=== PATIENT | female | born 1990 | race Caucasian/White ===

== ENCOUNTER 2018-03-10 10:01 | Observation (INO) | payer BC ==
[2018-03-08 13:23] LABS: BASOPHILS % 0.3 % (0.0-1.0); EOSINOPHILS # (AUTO) 0.2 (0.0-0.4); EOSINOPHILS % 1.5 % (0.0-6.0); HEMATOCRIT 35.9 % (34.2-44.1); HEMOGLOBIN 11.8 g/dL (12.0-16.0); LYMPHOCYTES # (AUTO) 2.5 (1.0-3.2); LYMPHOCYTES % 25.4 % (18.0-39.1); MEAN CORPUSCULAR HEMOGLOBIN 27.8 pg (28-32); MEAN CORPUSCULAR HGB CONC 32.9 g/dL (31-35); MEAN CORPUSCULAR VOLUME 84.5 fL (81-99); MONOCYTES # (AUTO) 0.4 (0.2-0.8); NEUTROPHILS # (AUTO) 6.7 (2.1-6.9); NEUTROPHILS % 68.6 % (38.7-80.0); PLATELET COUNT 303 x10e3/uL (140-360); RED BLOOD COUNT 4.25 x10e6/uL (3.6-5.1); RED CELL DISTRIBUTION WIDTH 14.7 % (11.7-14.4)
[2018-03-08 13:35] LABS: INR 1.06
[2018-03-08 13:36] LABS: PARTIAL THROMBOPLASTIN TIME 22.6 seconds (23.8-35.5)
[2018-03-08 13:40] LABS: ANION GAP 12.8 mmol/L (8-16); BLOOD UREA NITROGEN 11 mg/dL (7-26); BUN/CREATININE RATIO 14 (6-25); CALCIUM 9.6 mg/dL (8.4-10.2); CARBON DIOXIDE 28 mmol/L (22-29); CHLORIDE 104 mmol/L (98-107); CREATININE, SERUM 0.76 mg/dL (0.57-1.11); EST GLOMERULAR FILTRATION RATE > 60 ML/MIN (60-); GLUCOSE 115 mg/dL (74-118); POTASSIUM 3.8 mmol/L (3.5-5.1); SODIUM 141 mmol/L (136-145)
--- NOTE | 2018-03-08 14:00 | Diagnostic Imaging Report ---
PROCEDURE: Frontal and lateral views of the chest. COMPARISON: None. INDICATIONS: PRE OPERATIVE CHEST X-RAY FOR BACK SURGERY WEDNESDAY FINDINGS: Lines/tubes: None. Lungs: The lungs are well inflated and clear. There is no evidence of pneumonia or pulmonary edema. Pleura: There is no pleural effusion or pneumothorax. Heart and mediastinum: The heart and the mediastinum are normal. Bones: No acute bony abnormality. IMPRESSION: 1. No acute cardiopulmonary disease. Oc Solorio M.D. Dictated by: Oc Solorio M.D. on 03/08/2018 at 14:03 Electronically approved by: Oc Solorio M.D. on 03/08/2018 at 14:03
[~2018-03-10] VITALS: Ht 162.6 cm; Wt 123.6 kg
[~2018-03-10 10:01] MED LIST: ACETAMINOPHEN 1000 MG/100 ML 100 ML IV ONE; BACITRACIN 50,000 UNIT VIAL ONE; BUPIVACAINE 0.5%/EPI 30 ML SDV INJ ONE; GELATIN SPONGE SZ 100 ONE; IBUPROFEN200 MG PO; LIDOCAINE HCL (LTA) 4 ML SOLN ONE; SALONPAS PATCH1 EAC1 TOP; THROMBIN FOR SOLN 5,000 UNIT VIAL ONE; TYLENOL # 31 EA PO
[2018-03-10] MEDS ORDERED: VANCOMYCIN HCL 1.5 GM in SODIUM CHLORIDE 0.9% 250ML 300 ML IV ONE (10:15)
[2018-03-10] MEDS ORDERED: ACETAMINOPHEN 325 MG TAB PO PRN (13:45)
[2018-03-10] MEDS ORDERED: ZOLPIDEM TARTRATE 5 MG TAB PO PRN (13:45)
[2018-03-10] MEDS ORDERED: MAGNESIUM/ALUMINUM/SIMETHICONE 30 ML UDC PO PRN (13:45)
[2018-03-10] MEDS ORDERED: HYDROMORPHONE 2MG/ML INJ IV PRN (13:45)
[2018-03-10] MEDS ORDERED: CARISOPRODOL 350 MG TAB PO PRN (13:45)
[2018-03-10] MEDS ORDERED: PROMETHAZINE HCL (IM) 25 MG/ML VIAL IM PRN (13:45)
[2018-03-10] MEDS ORDERED: OXYCODONE/ACETAMINOPHEN 5-325 1 EACH TABLET PO PRN (13:45)
[2018-03-10] MEDS ORDERED: MORPHINE SULFATE 5 MG/ML VIAL IM PRN (13:45)
[2018-03-10] MEDS ORDERED: FENTANYL CITRATE/PF 100MCG/2 ML INJ ONE ×2 (13:48→18:28)
[2018-03-10] MEDS: LACTATED RINGER'S 1,000 ML IV SCH ×2 (14:30→22:12)
--- NOTE | 2018-03-10 14:30 | Operative Report ---
DATE OF PROCEDURE: March 10, 2018 PREOPERATIVE DIAGNOSIS: Right L5-S1 disk herniation with radiculopathy, M51.17. POSTOPERATIVE DIAGNOSIS: Right L5-S1 disk herniation with radiculopathy, M51.17. PROCEDURE: Right L5-S1 laminotomy, medial facetectomy, and microsurgical diskectomy, [id number]. ANESTHESIA: General. INDICATIONS: Patient is an obese woman who presents with a right L5-S1 central and paracentral disk herniation symptomatic with severe right S1 radiculopathy. She was taken to operating room for microsurgical diskectomy. PROCEDURE: After induction of general anesthesia, the patient was placed on the operating table in prone position over a Speedy frame. Lumbar region was prepped and draped in sterile fashion. A preoperative x-ray was obtained. A midline incision was created overlying her previous incision scar corresponding to a previous L4-5 laminotomy. The subcutaneous fat was divided. The lumbar fascia was reached at the depths of the incision. The lumbar fascia was opened in the right of midline and dissection was carried out to expose the right side of the L5-S1 laminae and medial aspect of the facet joint. A 2nd x-ray confirmed correct localization. The deepest [employer] speculum retractor was deployed. The operating microscope was brought in. A high-speed drill equipped with a 4 mm tim bur was used to drill the inferior aspect of lamina at L5 and the medial rim of the L5-S1 facet joint and superior rim of the lamina of S1 on the right side. The ligamentum flavum was resected and the lateral margin of the dural sac and the right S1 nerve root were exposed. The epidural veins superolateral to the nerve root were bipolar coagulated and divided with microscissors. The herniated disk material came into view peaking from under the S1 nerve root and the edge of the disk material was retrieved with a micro ball probe and then grasped with a micro pituitary rongeur and a large fragment of disk was delivered out from the ventral epidural space and the nerve root was immediately decompressed. The nerve root could then be retracted slightly medially. The opening into the annulus of the disk was enlarged with a number 11 blade and the loose contents of the L5-S1 disk were evacuated with curettes and pituitary rongeurs. The subligamentous portion of the disk herniation was retrieved and removed with an up-angled pituitary. Excellent decompression was achieved. The wound was copiously irrigated with Bacitracin solution. Meticulous hemostasis was secured. Retractor was removed. The lumbar fascia was closed with 0 Vicryl sutures. Subcutaneous layer was closed with 2-0 Vicryl sutures. The skin was closed with 3-0 Monocryl sutures in subcuticular fashion. Steri strips and dressing were applied. The patient was awakened, extubated and taken to post anesthesia care unit in stable condition. No intraoperative complications were encountered. Estimated blood loss was 10 mL. Job#: [id number] PELON
[2018-03-10] MEDS: HYDROMORPHONE 1MG/1ML INJ IV PRN ×2 (14:50→20:25)
[2018-03-10 15:03] VITALS: BP 153/98
[2018-03-10 15:10] VITALS: BP 153/98
[2018-03-10] MEDS ORDERED: ROCURONIUM BROMIDE 10 MG/ML 5ML VIAL ONE (17:55)
[2018-03-10] MEDS ORDERED: SEVOFLURANE INHAL SOLN 250 ML PEN BTL ONE (17:55)
[2018-03-10] MEDS ORDERED: PROPOFOL IV EMULSION 10 MG/ML 20 ML VIAL ONE (17:55)
[2018-03-10] MEDS ORDERED: DEXAMETHASONE SOD PHOS INJ 4 MG/ML VIAL ONE (17:55)
[2018-03-10] MEDS ORDERED: ONDANSETRON HCL INJ 2 MG/ML VIAL ONE (17:55)
[2018-03-10] MEDS ORDERED: ACETAMINOPHEN 1000 MG/100 ML IV ONE (17:55)
[2018-03-10] MEDS ORDERED: LIDOCAINE HCL 2% LOCAL INJ 5 ML SDV VIAL INJ ONE (17:55)
[2018-03-10] MEDS ORDERED: MIDAZOLAM HCL 2 MG/2 ML VIAL ONE (18:28)
[2018-03-10 20:00] VITALS: BP 134/71
[2018-03-10] MEDS: ONDANSETRON HCL INJ 2 MG/ML VIAL IV PRN (20:44)
[2018-03-10] MEDS: VANCOMYCIN 1GM/NS 250 ML 250 ML IV SCH (22:12)
[2018-03-11] VITALS: BP 178/86
[2018-03-11] MEDS: HYDROMORPHONE 1MG/1ML INJ IV PRN ×3 (00:40→10:35)
[2018-03-11 04:00] VITALS: BP 124/60
[2018-03-11] MEDS: LACTATED RINGER'S 1,000 ML IV SCH (04:00)
[2018-03-11] MEDS: ONDANSETRON HCL INJ 2 MG/ML VIAL IV PRN ×2 (06:44→10:30)
[2018-03-11 07:31] VITALS: BP 124/60
[2018-03-11 08:00] VITALS: BP 134/71
[2018-03-11] MEDS: VANCOMYCIN 1GM/NS 250 ML 250 ML IV SCH (09:18)
[2018-03-11] MEDS ORDERED: NORCO 7.5-3251 EACH PO (09:48)
== END 2018-03-11 10:59 | disposition home or self-care (01) ==
LOC: OR 10:01 → PACU V 13:41 → IMCU 14:34
PROVIDERS: ADMIT Neurological Surgery; ATTEND Neurological Surgery
DX: M51.17 Intervertebral disc disorders with radiculopathy, lumbosacral region (principal); E66.9 Obesity, unspecified; Z68.42 Body mass index [BMI] 45.0-49.9, adult
CPT/HCPCS: 36415; 63047; 71046; 72020; 80048; 81025; 85025; 85610; 85730; 86850; 86900; 88304; 93005; G0378 ×2; J1100; J1170 ×2; J2001; J2250; J2405 ×2; J3370 ×3; J7050; J7120; J2270; J2550

== ENCOUNTER 2018-03-24 12:52 | Outpatient (RCR) | payer BC ==
[~2018-03-24 12:52] MED LIST changes: -ACETAMINOPHEN 1000 MG/100 ML 100 ML IV ONE; -BACITRACIN 50,000 UNIT VIAL ONE; -BUPIVACAINE 0.5%/EPI 30 ML SDV INJ ONE; -GELATIN SPONGE SZ 100 ONE; -LIDOCAINE HCL (LTA) 4 ML SOLN ONE; +NORCO 7.5-3251 EACH PO; -THROMBIN FOR SOLN 5,000 UNIT VIAL ONE
== END 2018-03-26 ==
LOC: PT 12:52
PROVIDERS: ATTEND Neurological Surgery
DX: M51.17 Intervertebral disc disorders with radiculopathy, lumbosacral region (principal); M53.86 Other specified dorsopathies, lumbar region; M62.81 Muscle weakness (generalized)